=== PATIENT | female | born 1995 | race Caucasian/White ===

== ENCOUNTER 2017-06-13 15:50 | Emergency (ER) | payer OTHER ==
[~2017-06-13] VITALS: Ht 170.2 cm; Wt 65.8 kg
[~2017-06-13 15:50] MED LIST: LIORESAL 10 MG10 MG PO; TRAMADOL 50 MG50 MG PO
[2017-06-13] MEDS ORDERED: IBUPROFEN 600600 M1 PO (17:11)
[2017-06-13 17:21] VITALS: BP 120/76
== END 2017-06-13 17:22 | disposition home or self-care (01) ==
LOC: ER 15:50
DX: M77.9 Enthesopathy, unspecified (principal); F17.210 Nicotine dependence, cigarettes, uncomplicated; V49.3XXA Car occupant (driver) (passenger) injured in unspecified nontraffic accident, initial encounter; Y93.89 Activity, other specified; Y92.89 Other specified places as the place of occurrence of the external cause; Y99.8 Other external cause status

== ENCOUNTER 2017-09-24 13:13 | Emergency (ER) | payer OTHER ==
[~2017-09-24] VITALS: Ht 170.2 cm; Wt 69.8 kg
--- NOTE | ~2017-09-24 | EKG ---
[place] [address] [facility] [place] [employer] [place] [address] ELECTROCARDIOGRAM REPORT Name: AIDAN ENRIQUE Room #: [facility]#: [id number] Admission: 09/24/17 Attend Phys: Discharge: Date of : [birth year] Report #: [id number] THIS REPORT FOR: //name// [facility] ED Test Date: 2017-09-24 Test Time: 14:13:24 Pat Name: AIDAN ENRIQUE Department: Room: Gender: F [employer]: ANDREW : 1995 Requested By: Sudarshan Byrd Order Number: [id number] MD: Salvatore Rodriguez Measurements Intervals [place] Rate: 59 P: 41 WI: 160 QRS: 59 QRSD: 78 T: 46 QT: 428 QTc: 424 Interpretive Statements Sinus bradycardia Otherwise normal tracing No previous ECG available for comparison Electronically Signed On 09-24-2017 16:56:28 CDT by Salvatore Rodriguez [email or web address] <ELECTRONICALLY SIGNED> By: Salvatore Rodriguez MD, [facility] 09/24/17 1656 1413 1413 Salvatore Rodriguez MD, FACC /EPI
[~2017-09-24 13:13] MED LIST changes: +IBUPROFEN 600600 M1 PO
[2017-09-24 14:06] LABS: ABSOLUTE NEUTROPHILS 4.8 thou/uL (1.4-8.2); EOSINOPHILS 2.1 % (0.0-3.0); HEMOGLOBIN 13.6 gm/dL (12.0-15.0); LYMPHOCYTES 23.6 % (24.0-44.0); MCV 85.3 fL (80.0-100.0); MONOCYTES 7.9 % (1.0-8.0); PLATELET COUNT 260 thou/uL (150-400); POLYS 65.4 % (36.0-66.0); RBC 4.69 mil/uL (4.20-5.00); RDW 13.8 % (10.5-14.5); WBC 7.3 thou/uL (4.0-11.0)
[2017-09-24 14:12] LABS: URINE BILIRUBIN NEGATIVE (Negative); URINE BLOOD NEGATIVE (Negative); URINE CLARITY HAZY; URINE COLOR YELLOW; URINE GLUCOSE-RANDOM* NEGATIVE (Negative); URINE KETONES NEGATIVE (Negative); URINE LEUKOCYTES-REFLEX NEGATIVE (Negative); URINE NITRITE-REFLEX NEGATIVE (Negative); URINE PROTEIN (DIPSTICK) NEGATIVE (Negative); URINE UROBILINOGEN 0.2 E.U./dl (0.2-1.0)
[2017-09-24 14:23] LABS: CREATININE 0.7 mg/dL (0.6-1.0); POTASSIUM 3.8 mmol/L (3.5-5.1)
[2017-09-24 14:26] LABS: TOTAL BILIRUBIN 0.4 mg/dL (<0.1-1.0); TOTAL PROTEIN 7.9 g/dL (6.4-8.2)
[2017-09-24 15:30] VITALS: BP 114/64
[2017-09-24] MEDS ORDERED: ZOFRAN ODT4 MG PO (15:32)
== END 2017-09-24 16:46 | disposition home or self-care (01) ==
LOC: ER 13:13
PROVIDERS: Physician Assistant
DX: R55 Syncope and collapse (principal); B34.9 Viral infection, unspecified; R11.0 Nausea; F17.210 Nicotine dependence, cigarettes, uncomplicated